=== PATIENT | female | born 1940 | race Caucasian/White ===

== ENCOUNTER 2018-01-03 17:43 | Inpatient (IN) | payer OTHER ==
[~2018-01-03] VITALS: Ht 152.4 cm; Wt 92.5 kg
[2018-01-03 18:41] VITALS: BP 170/89
[2018-01-03] MEDS ORDERED: ONDANSETRON 2MG/ML, 2ML IVPush PRN (20:00)
[2018-01-03] MEDS ORDERED: PLEASE ENTER ALLERGIES MC SCH (20:00)
[2018-01-03] MEDS ORDERED: PLEASE ENTER HEIGHT AND WEIGHT MC SCH (20:00)
[2018-01-03] MEDS ORDERED: NITROGLYCERIN 0.4 MG BOTTLE (25 TABS) SL PRN (20:00)
[2018-01-03] MEDS ORDERED: ACETAMINOPHEN 325 MG TABLET PO PRN (20:00)
[2018-01-03] MEDS ORDERED: BISACODYL 10 MG SUPP PR PRN (20:00)
[2018-01-03] MEDS ORDERED: HYDROmorphone 2 MG/ML, 1ML IVPush PRN (20:00)
[2018-01-03] MEDS ORDERED: POLYETHYLENE GLYCOL 17 GM PACKET PO PRN (20:00)
[2018-01-03 20:44] LABS: % IRON SATURATION 8 % (20-55); IRON LEVEL 30 mcg/dL (50-170); TOTAL IRON BINDING CAPACITY 390 mcg/dL (250-450)
[2018-01-03 20:46] VITALS: BP 155/93
[2018-01-03 20:47] LABS: TROPONIN I < 0.015 ng/mL (0.000-0.045)
[2018-01-03] MEDS ORDERED: DULO30CA43 PO (21:46)
[2018-01-03] MEDS ORDERED: OMEP20CA14 PO (21:46)
[2018-01-03] MEDS ORDERED: LOSA25TA5 PO (21:46)
[2018-01-03] MEDS ORDERED: ASPI-496 PO (21:46)
[2018-01-03] MEDS ORDERED: MECL25TA4 PO (21:46)
[2018-01-03] MEDS ORDERED: SIMV40TA3 PO (21:46)
[2018-01-03] MEDS ORDERED: MAGN400T36 PO (21:46)
[2018-01-03] MEDS ORDERED: CALC-680 PO (21:46)
[2018-01-03] MEDS ORDERED: CHOL100011 PO (21:46)
[2018-01-03] MEDS ORDERED: MECLIZINE CHEWABLE 25 MG TAB PO PRN (22:30)
[2018-01-03 22:53] VITALS: BP 126/83
[2018-01-03] MEDS: SODIUM CHLORIDE FLUSH 10ML SYR IVF SCH (23:01)
[2018-01-03] MEDS: HEPARIN 5,000 UNITS/ML, 1ML SQ SCH (23:01)
[2018-01-03] MEDS: ASPIRIN 81 MG TABLET EC PO SCH (23:01)
[2018-01-03] MEDS: FERROUS SULFATE 325 MG TABLET PO SCH (23:01)
[2018-01-03] MEDS: LOSARTAN 25MG TABLET PO SCH (23:02)
[2018-01-03] MEDS: SIMVASTATIN 40 MG TABLET PO SCH (23:02)
[2018-01-04 00:16] VITALS: BP 136/82
[2018-01-04 01:57] LABS: TROPONIN I < 0.015 ng/mL (0.000-0.045)
[2018-01-04 05:18] LABS: BASOPHILS # (AUTO) 0.04 x10^3/uL (0-0.1); BASOPHILS % (AUTO) 1 % (0-1); EOSINOPHILS # (AUTO) 0.13 x10^3/uL (0-0.4); EOSINOPHILS % (AUTO) 2 % (1-7); LYMPHOCYTES # (AUTO) 2.07 x10^3/uL (1-3.4); LYMPHOCYTES % (AUTO) 31 % (22-44); MD NO; MEAN CORPUSCULAR HGB CONC 31.8 g/dL (32.4-35.8); MEAN CORPUSCULAR VOLUME 75.3 fL (80-100); MEAN PLATELET VOLUME 7.4 fL (7.4-10.4); MONOCYTES % (AUTO) 12 % (2-9); NEUTROPHILS # (AUTO) 3.59 x10^3/uL (1.8-6.8); NEUTROPHILS % (AUTO) 54 % (42-75); PLATELET COUNT 269 x10^3/uL (130-400); RED BLOOD COUNT 4.79 x10^6/uL (3.82-5.3); RED CELL DISTRIBUTION WIDTH 16.2 % (9.6-15.2)
[2018-01-04 05:26] LABS: ALBUMIN 3.3 g/dL (3.4-5.0); ANION GAP 7 mmol/L (5-15); CALCIUM 8.3 mg/dL (8.5-10.1); CHLORIDE 106 mmol/L (98-107)
[2018-01-04 05:30] LABS: ALANINE AMINOTRANSFERASE 25 U/L (12-78); ALKALINE PHOSPHATASE 64 U/L (45-117); BILIRUBIN,TOTAL 0.7 mg/dL (0.2-1.0); CHOL/HDL RATIO 4.4; CHOLESTEROL, TOTAL 204 mg/dL (140-239); CREATININE 0.89 mg/dL (0.55-1.02); HDL CHOL % 23 % (28-40); HDL CHOLESTEROL (DIRECT) 46 mg/dL (40-60); LDL CHOLESTEROL,CALCULATED 123 mg/dL (54-169); LDL/HDL RATIO 2.7 (0.5-3.0); TOTAL PROTEIN 6.7 g/dL (6.4-8.2); TRIGLYCERIDES 175 mg/dL (50-200); VLDL CHOLESTEROL 35 mg/dL (0-25)
[2018-01-04] MEDS ORDERED: ASPIRIN 81 MG TABLET EC PO SCH (06:00)
[2018-01-04] MEDS ORDERED: OMEPRAZOLE 20 MG CAPSULE.DR PO SCH (07:30)
[2018-01-04 07:50] VITALS: BP 121/80
[2018-01-04] MEDS: HEPARIN 5,000 UNITS/ML, 1ML SQ SCH ×2 (09:39→16:04)
[2018-01-04] MEDS: MAGNESIUM OXIDE 400 MG TABLET PO SCH (09:40)
[2018-01-04] MEDS: SODIUM CHLORIDE FLUSH 10ML SYR IVF SCH ×2 (09:40→21:22)
[2018-01-04] MEDS: FERROUS SULFATE 325 MG TABLET PO SCH ×3 (09:40→21:22)
[2018-01-04] MEDS: ASPIRIN 81 MG TABLET EC PO SCH (09:41)
[2018-01-04] MEDS: DULOXETINE 30 MG CAPSULE.DR PO SCH (09:41)
[2018-01-04] MEDS: SENNA/DOCUSATE TABLET PO SCH (09:42)
[2018-01-04] MEDS: CHOLECALCIFEROL 1,000 UNIT TABLET PO SCH (09:43)
[2018-01-04] MEDS: CALCIUM CITRATE 950 MG TABLET PO SCH (12:58)
[2018-01-04 13:32] VITALS: BP 122/78
[2018-01-04] MEDS ORDERED: CALCIUM CARBONATE 500 MG TAB.CHEW PO PRN (16:00)
[2018-01-04] MEDS: OMEPRAZOLE 20 MG CAPSULE.DR PO SCH (16:03)
[2018-01-04 16:23] LABS: THYROID STIMULATING HORMONE 1.81 mIU/L (0.358-3.740)
[2018-01-04 20:00] VITALS: BP 127/75
[2018-01-04] MEDS ORDERED: LOSARTAN 25MG TABLET PO SCH (21:00)
[2018-01-04] MEDS: SIMVASTATIN 40 MG TABLET PO SCH (21:22)
[2018-01-04] MEDS: LOSARTAN 25MG TABLET PO SCH (21:22)
[2018-01-05] MEDS: HEPARIN 5,000 UNITS/ML, 1ML SQ SCH ×3 (00:11→15:54)
[2018-01-05 02:18] VITALS: BP 126/79
[2018-01-05 05:36] LABS: BASOPHILS # (AUTO) 0.03 x10^3/uL (0-0.1); BASOPHILS % (AUTO) 0 % (0-1); EOSINOPHILS # (AUTO) 0.14 x10^3/uL (0-0.4); EOSINOPHILS % (AUTO) 2 % (1-7); LYMPHOCYTES # (AUTO) 1.83 x10^3/uL (1-3.4); LYMPHOCYTES % (AUTO) 29 % (22-44); MD NO; MEAN CORPUSCULAR HEMOGLOBIN 24.3 pg (27.0-34.8); MEAN CORPUSCULAR HGB CONC 32.2 g/dL (32.4-35.8); MEAN CORPUSCULAR VOLUME 75.5 fL (80-100); MEAN PLATELET VOLUME 7.8 fL (7.4-10.4); MONOCYTES # (AUTO) 0.85 x10^3/uL (0.2-0.8); MONOCYTES % (AUTO) 14 % (2-9); NEUTROPHILS # (AUTO) 3.44 x10^3/uL (1.8-6.8); NEUTROPHILS % (AUTO) 55 % (42-75); PLATELET COUNT 241 x10^3/uL (130-400); RED BLOOD COUNT 4.63 x10^6/uL (3.82-5.3); RED CELL DISTRIBUTION WIDTH 16.5 % (9.6-15.2)
[2018-01-05 05:43] LABS: CHLORIDE 105 mmol/L (98-107)
[2018-01-05 05:49] LABS: ANION GAP 6 mmol/L (5-15); CALCIUM 8.9 mg/dL (8.5-10.1)
[2018-01-05 07:05] VITALS: BP 134/83
[2018-01-05] MEDS ORDERED: metFORMIN 500 MG TABLET ONE (08:21)
[2018-01-05] MEDS: SENNA/DOCUSATE TABLET PO SCH (09:31)
[2018-01-05] MEDS: ASCORBIC ACID 500 MG TABLET PO SCH (09:31)
[2018-01-05] MEDS: CALCIUM CITRATE 950 MG TABLET PO SCH (09:31)
[2018-01-05] MEDS: OMEPRAZOLE 20 MG CAPSULE.DR PO SCH ×2 (09:31→15:54)
[2018-01-05] MEDS: CHOLECALCIFEROL 1,000 UNIT TABLET PO SCH (09:32)
[2018-01-05] MEDS: DULOXETINE 30 MG CAPSULE.DR PO SCH (09:32)
[2018-01-05] MEDS: FERROUS SULFATE 325 MG TABLET PO SCH ×3 (09:32→21:48)
[2018-01-05] MEDS: SODIUM CHLORIDE FLUSH 10ML SYR IVF SCH ×2 (09:32→21:48)
[2018-01-05] MEDS: MAGNESIUM OXIDE 400 MG TABLET PO SCH (09:32)
[2018-01-05] MEDS: ASPIRIN 81 MG TABLET EC PO SCH (09:41)
[2018-01-05 15:00] VITALS: BP 129/80
[2018-01-05] MEDS ORDERED: MAGNESIUM SULFATE PMX 2GM/50ML 50 ML IV ONE (15:00)
[2018-01-05 20:11] VITALS: BP 130/73
[2018-01-05] MEDS ORDERED: OMNIPAQUE 350 MG/ML, 100ML BOTTLE ONE (20:45)
[2018-01-05] MEDS: LOSARTAN 25MG TABLET PO SCH (21:48)
[2018-01-05] MEDS: SIMVASTATIN 40 MG TABLET PO SCH (21:48)
[2018-01-06] MEDS: HEPARIN 5,000 UNITS/ML, 1ML SQ SCH ×2 (00:13→08:53)
[2018-01-06 00:30] VITALS: BP 113/75
[2018-01-06 04:47] LABS: BASOPHILS # (AUTO) 0.02 x10^3/uL (0-0.1); BASOPHILS % (AUTO) 0 % (0-1); EOSINOPHILS # (AUTO) 0.14 x10^3/uL (0-0.4); EOSINOPHILS % (AUTO) 2 % (1-7); LYMPHOCYTES # (AUTO) 1.92 x10^3/uL (1-3.4); LYMPHOCYTES % (AUTO) 25 % (22-44); MD NO; MEAN CORPUSCULAR HEMOGLOBIN 24.6 pg (27.0-34.8); MEAN CORPUSCULAR HGB CONC 32.4 g/dL (32.4-35.8); MEAN CORPUSCULAR VOLUME 75.7 fL (80-100); MEAN PLATELET VOLUME 7.6 fL (7.4-10.4); MONOCYTES # (AUTO) 0.79 x10^3/uL (0.2-0.8); MONOCYTES % (AUTO) 11 % (2-9); NEUTROPHILS # (AUTO) 4.69 x10^3/uL (1.8-6.8); NEUTROPHILS % (AUTO) 62 % (42-75); PLATELET COUNT 265 x10^3/uL (130-400); RED BLOOD COUNT 4.61 x10^6/uL (3.82-5.3)
[2018-01-06 04:56] LABS: ANION GAP 7 mmol/L (5-15); CALCIUM 8.6 mg/dL (8.5-10.1); CHLORIDE 106 mmol/L (98-107)
[2018-01-06 04:58] LABS: CREATININE 0.95 mg/dL (0.55-1.02)
[2018-01-06 06:50] VITALS: BP 125/81
[2018-01-06 08:48] VITALS: BP 121/67
[2018-01-06] MEDS: ASCORBIC ACID 500 MG TABLET PO SCH (08:52)
[2018-01-06] MEDS: OMEPRAZOLE 20 MG CAPSULE.DR PO SCH (08:52)
[2018-01-06] MEDS: ASPIRIN 81 MG TABLET EC PO SCH (08:52)
[2018-01-06] MEDS: CHOLECALCIFEROL 1,000 UNIT TABLET PO SCH (08:52)
[2018-01-06] MEDS: CALCIUM CITRATE 950 MG TABLET PO SCH (08:52)
[2018-01-06] MEDS: DULOXETINE 30 MG CAPSULE.DR PO SCH (08:53)
[2018-01-06] MEDS: SENNA/DOCUSATE TABLET PO SCH (08:53)
[2018-01-06] MEDS: FERROUS SULFATE 325 MG TABLET PO SCH (08:53)
[2018-01-06] MEDS: SODIUM CHLORIDE FLUSH 10ML SYR IVF SCH (08:53)
[2018-01-06] MEDS: MAGNESIUM OXIDE 400 MG TABLET PO SCH (08:53)
[2018-01-06 10:23] LABS: OCCULT BLOOD NEGATIVE (NEGATIVE)
[2018-01-06 12:44] VITALS: BP 139/80
[2018-01-06] MEDS ORDERED: FERR-51 PO (12:50)
[2018-01-06] MEDS ORDERED: ASCO500T6 PO (12:50)
[2018-01-06] MEDS ORDERED: OMEP20CA14 PO (12:50)
[2018-01-06] MEDS ORDERED: METO-93 PO (12:50)
[2018-01-06] MEDS ORDERED: DOCU-131 PO (12:50)
[2018-01-06 12:55] LABS: OCCULT BLOOD NEGATIVE (NEGATIVE)
[2018-01-06] MEDS ORDERED: METOPROLOL SUCCINATE 50 MG TAB.ER.24H PO SCH (13:00)
[2018-01-07] MEDS ORDERED: METOPROLOL SUCCINATE 50 MG TAB.ER.24H PO SCH (06:00)
== END 2018-01-06 15:12 | disposition home or self-care (01) | DRG 391 ==
LOC: 5SO 19:32 → DCLOUNGE 01-06 15:12
PROVIDERS: ADMIT Internal Medicine Pulmonary Disease; ATTEND Internal Medicine Pulmonary Disease
DX: K21.9 Gastro-esophageal reflux disease without esophagitis (principal); J96.01 Acute respiratory failure with hypoxia; G47.34 Idiopathic sleep related nonobstructive alveolar hypoventilation; R13.19 Other dysphagia; E44.1 Mild protein-calorie malnutrition; R13.10 Dysphagia, unspecified; Z68.41 Body mass index [BMI] 40.0-44.9, adult; I34.0 Nonrheumatic mitral (valve) insufficiency; R00.0 Tachycardia, unspecified; I10 Essential (primary) hypertension; E66.9 Obesity, unspecified; G47.33 Obstructive sleep apnea (adult) (pediatric); Z88.6 Allergy status to analgesic agent; Z88.5 Allergy status to narcotic agent; Z88.8 Allergy status to other drugs, medicaments and biological substances; D50.9 Iron deficiency anemia, unspecified; E78.5 Hyperlipidemia, unspecified; Z68.39 Body mass index [BMI] 39.0-39.9, adult; Z80.9 Family history of malignant neoplasm, unspecified; Z90.710 Acquired absence of both cervix and uterus; Z96.651 Presence of right artificial knee joint; K44.9 Diaphragmatic hernia without obstruction or gangrene
CPT/HCPCS: 36415; 70450; 71275; 80048; 80053; 80061; 82272; 82728; 83540; 83550; 83735; 84443; 84484; 85025; 93005; 93306; J1644; Q9967; 92523-GN; J3475